=== PATIENT | female | born 1970 | race Caucasian/White ===

== ENCOUNTER → 2018-05-30 | Outpatient (CLI) | payer OTHER | END | disposition home or self-care (01) | LOC: XYW 10:57 | PROVIDERS: ATTEND Internal Medicine Cardiovascular Disease | DX: I49.49 Other premature depolarization (principal) | CPT/HCPCS: 93306 ==

== ENCOUNTER → 2018-06-14 | Outpatient (CLI) | payer OTHER | END | disposition home or self-care (01) | LOC: XYW 08:49 | PROVIDERS: ATTEND Internal Medicine Cardiovascular Disease | DX: I49.49 Other premature depolarization (principal) | CPT/HCPCS: 93017 ==

== ENCOUNTER 2018-10-25 06:49 | Inpatient (IN) | payer OTHER | END 2018-10-27 13:15 | disposition home or self-care (01) | LOC: SUR 06:49 → TELE-CENTR 15:03 | DX: S82.202A Unspecified fracture of shaft of left tibia, initial encounter for closed fracture (principal) ==